=== PATIENT | male | born 1990 | race Caucasian/White ===

== ENCOUNTER 2019-12-18 15:13 | Emergency (ER) | payer OTHER ==
[~2019-12-18] VITALS: Ht 180.3 cm; Wt 81.8 kg
[2019-12-18 15:14] VITALS: BP 129/71
[2019-12-18] MEDS ORDERED: IBUPROFEN 600MG TAB PO ONE (15:45)
--- NOTE | 2019-12-18 16:22 | REP ---
Chest x-ray: Two views. History: Shortness of breath. . Comparison study: No comparison study . Findings: The lungs are well inflated and free of infiltrate. The pleural angles are sharp. The heart size is normal. Pulmonary vasculature is not increased. No significant bony abnormality is seen. Impression: Negative chest x-ray. Electronically Signed by Zohaib Rosas MD 12/18/2019 04:13 P
[2019-12-18] MEDS ORDERED: IBUP-1022 PO (16:53)
== END 2019-12-18 17:00 | disposition home or self-care (01) ==
LOC: M ED 15:13
DX: R07.81 Pleurodynia (principal); R06.02 Shortness of breath; M54.9 Dorsalgia, unspecified